=== PATIENT | female | born 1985 | race Caucasian/White ===

== ENCOUNTER 2020-03-21 04:09 | Emergency (ER) | payer OTHER ==
[~2020-03-21] VITALS: Ht 157.5 cm; Wt 77.1 kg
[2020-03-21] MEDS ORDERED: TEGRETOL200 MG PO (04:23)
[2020-03-21] MEDS ORDERED: EUTHYROX25 MCG PO (04:23)
[2020-03-21] MEDS ORDERED: LATUDA40 MG PO (04:23)
[2020-03-21 05:04] VITALS: BP 127/87
== END 2020-03-21 05:05 | disposition home or self-care (01) ==
LOC: M.ERS 04:09
DX: S01.81XA Laceration without foreign body of other part of head, initial encounter (principal); S40.212A Abrasion of left shoulder, initial encounter; S40.211A Abrasion of right shoulder, initial encounter; W22.8XXA Striking against or struck by other objects, initial encounter; Y93.89 Activity, other specified; Y92.89 Other specified places as the place of occurrence of the external cause; Y99.8 Other external cause status